=== PATIENT | female | born 1985 | race Caucasian/White ===

== ENCOUNTER 2020-04-07 18:48 | Emergency (ER) | payer OTHER ==
[~2020-04-07] VITALS: Ht 167.6 cm; Wt 91.2 kg
--- NOTE | ~2020-04-07 | EMS ---
[facility] [address] [place] [address] EMS Patient Care Report Name: TODD DAVID [facility] Luis Daniel#: [id number] Admission: 04/07/20 Attend Phys: Discharge: 04/07/20 Date of : 83 Report #: [id number] THIS REPORT FOR: //name// Report Transmitted: 04/08/2020 10:22 EMS Care Summary [facility] Lisa HOLT Incident [id number] @ 04/07/2020 17:57 Incident Location [address] [place] [address] Patient Dulce David Female, 34 Years 1985 Patient Address [address] [place] [address] Patient History Migraine, unspecified, intractable, without status migrainosus, Patient Allergies No known allergies, Patient Medications Zinc, Chief Complaint Headache Disposition Transported No Lights/[place] [facility] Reason Headache Transported To [facility] Narrative [facility] dispatched for headache. Arrived on scene of a single-family home. Patient is located on the entryway stairs, laying left lateral in the dark. Patient responds to voice. Patient reports headache since approximately noon. This began while at work. It has increased throughout the day and now has [facility] [address] [place] [address] EMS Patient Care Report Name: TODD DAVID [facility] [place]#: [id number] Admission: 04/07/20 Attend Phys: Discharge: 04/07/20 Date of : 83 Report #: [id number] caused tingling in both extremities. She describes the pain as constant pressure that has causes blurred vision. She has nausea without vomiting. Patient denies any trauma to her head. Patient does have a history of migraines with the last being in December. She states this feels different and more severe. Patient does not take any prescription medications. She did have COVID-19 in January. Patient requests transport to [place]. Patient was assisted to her feet and she was able to ambulate to cot without incident. No gait disturbances noted. Patient sat on cot, was covered with a blanket and secured via safety straps plus side rails. She was taken to ambulance and loaded without incident with assistance of [facility]. Vitals, 4-lead, 12-lead, IV access with lab draw and blood glucose obtained. CPHSS negative. Patient given Zofran for nausea. Initially patient refused pain medication, she requested Tramadol and was advised that this was not an option. Discussed with patient that she could have a lower dose of Fentanyl. During transport patient did agree to this. Capnography placed for monitoring and Fentanyl administered as documented. During transport, patioent compartment lights turned off for her comfort. Patient remained monitored with supportive care provided. At destination, signature obtained. Patient was unloaded, taken to room four and all monitoring removed. Patient was able to self-transfer from cot to facility bed without incident. Patient in possession of her cell phone, insurance card and ID at time of transfer Report, lab draw to RN and signature obtained. Narcotic waste performed and form completed with RN. Care transferred and call cleared. Initial Vitals @18:17Pain: 12/13, @18:03Pain: 01/12, @18:23SpO2: 98, @18:10SpO2: 99, @18:38SpO2: 98, @18:10 @18:10P: 107,R: 18,BP: 140/90, @18:23P: 90,R: 16,BP: 130/86, @18:38P: 81,R: 18,BP: 122/77, @18:10GCS: 15, @18:23GCS: 15, @18:38GCS: 15, @18:03 @18:20Glucose: 144, Assessments @18:03MENTAL:SKIN:HEENT:LUNG SOUNDS:ABDOMEN:PELVIS//GI:EXTREMITIES:PULSE:NEURO: [place] [address] EMS Patient Care Report Name: TODD DAVID [facility] [place] [id number] Admission: 04/07/20 Attend Phys: Discharge: 04/07/20 Date of : 83 Report #: [id number] Procedures @18:16Ondansetron - 4.000 Milligrams (mg) - Intravenous (IV)Response: Unchanged@18:27Fentanyl - 25.000 Micrograms (mcg) - Intravenous (IV)Response: Improved@18:12 cc () Site: Antecubital-LeftResponse: UnchangedSucceeded@18:1012-Lead ECGResponse: UnchangedSucceeded Timeline 12:03,Call Received 17:57,Dispatch Notified 17:57,[facility] Call 17:57,Dispatched 17:57,En Route 18:02,On Scene 18:03,At Patient 18:03,BP: / M,PULSE: ,RR: R,SPO2: Ox,ETCO2: ,BG: ,PAIN: 10,GCS: , 18:03,BP: / M,PULSE: ,RR: R,SPO2: Ox,ETCO2: ,BG: ,PAIN: ,GCS: , 18:10,BP: / M,PULSE: ,RR: R,SPO2: 99 Ox,ETCO2: ,BG: ,PAIN: ,GCS: , 18:10,BP: 140/90 M,PULSE: 107,RR: 18 R,SPO2: Ox,ETCO2: ,BG: ,PAIN: ,GCS: , 18:10,BP: / M,PULSE: ,RR: R,SPO2: Ox,ETCO2: ,BG: ,PAIN: ,GCS: 15, 18:10,12-Lead ECG,Response: UnchangedSucceeded, 18:10,BP: / M,PULSE: ,RR: R,SPO2: Ox,ETCO2: ,BG: ,PAIN: ,GCS: , 18:12, cc Site: Antecubital-Left,Response: UnchangedSucceeded, 18:16,Ondansetron - 4.000 Milligrams (mg) - Intravenous (IV),Response: Unchanged 18:17,BP: / M,PULSE: ,RR: R,SPO2: Ox,ETCO2: ,BG: ,PAIN: 9,GCS: , 18:17,Depart Scene 18:20,BP: / M,PULSE: ,RR: R,SPO2: Ox,ETCO2: ,B,PAIN: ,GCS: , 18:23,BP: / M,PULSE: ,RR: R,SPO2: 98 Ox,ETCO2: ,BG: ,PAIN: ,GCS: , 18:23,BP: 130/86 M,PULSE: 90,RR: 16 R,SPO2: Ox,ETCO2: ,BG: ,PAIN: ,GCS: , 18:23,BP: / M,PULSE: ,RR: R,SPO2: Ox,ETCO2: ,BG: ,PAIN: ,GCS: 15, 18:27,Fentanyl - 25.000 Micrograms (mcg) - Intravenous (IV),Response: Improved 18:38,BP: / M,PULSE: ,RR: R,SPO2: 98 Ox,ETCO2: ,BG: ,PAIN: ,GCS: , 18:38,BP: 122/77 M,PULSE: 81,RR: 18 R,SPO2: Ox,ETCO2: ,BG: ,PAIN: ,GCS: , 18:38,BP: / M,PULSE: ,RR: R,SPO2: Ox,ETCO2: ,BG: ,PAIN: ,GCS: 15, 18:41,At Destination 18:57,Call Closed Disclaimer v1.1 Copyright 2020 [employer] This EMS Care Summary contains data elements from the applicable legal record (which may be displayed differently). It is designed to provide pertinent information for the following purposes: continuity of care, clinical quality, and state data reporting. The complete legal record is available to ED staff and administrators of the receiving hospital in [employer]'s Patient Tracker. All data is provided "as is."
[2020-04-07 19:49] LABS: ABSOLUTE EOSINOPHILS 0.1 thou/uL (0.0-0.7); ABSOLUTE LYMPHOCYTES 2.1 thou/uL (0.8-5.3); ABSOLUTE MONOCYTES 0.7 thou/uL (0.0-1.2); BASOPHILS 0.5 %; EOSINOPHILS 0.6 %; HEMATOCRIT 43.2 % (37.0-47.0); HEMOGLOBIN 14.4 gm/dL (12.0-15.0); LYMPHOCYTES 23.5 %; MCH 27.3 pg (26.0-34.0); MCHC 33.4 g/dL (28.0-37.0); MCV 81.7 fL (80.0-100.0); MONOCYTES 7.9 %; NUCLEATED RBCS 0 /100WBC; PLATELET COUNT* 252 thou/uL (150-400); POLYS 67.5 %; RBC 5.29 mil/uL (4.20-5.00); RDW-CV 14.2 % (10.5-14.5); WBC 8.9 thou/uL (4.0-11.0)
[2020-04-07 19:53] LABS: CALCIUM 9.6 mg/dL (8.5-10.1); CREATININE 0.8 mg/dL (0.6-1.3); POTASSIUM 3.7 mmol/L (3.5-5.1)
[2020-04-07 19:58] LABS: ALBUMIN 4.2 g/dL (3.4-5.0); TOTAL BILIRUBIN 0.3 mg/dL (<0.1-1.0)
[2020-04-07] MEDS ORDERED: IMITREX 50 MG T50 MG PO (20:07)
[2020-04-07] MEDS ORDERED: ONDANSETRON ODT4 MG DISSOLVE (20:08)
[2020-04-07 20:17] VITALS: BP 133/84
== END 2020-04-07 20:18 | disposition home or self-care (01) ==
LOC: M.ERS 18:48
PROVIDERS: Physician Assistant
DX: G43.109 Migraine with aura, not intractable, without status migrainosus (principal); Z90.49 Acquired absence of other specified parts of digestive tract; Z85.41 Personal history of malignant neoplasm of cervix uteri